=== PATIENT | female | born 1960 | race Caucasian/White ===

== ENCOUNTER 2023-07-23 14:22 | Emergency (ER) | payer BC ==
[~2023-07-23] VITALS: Ht 167.6 cm; Wt 69.4 kg
[2023-07-23] MEDS ORDERED: IPRATROPIUM BROMIDE 0.5 MG/2.5 ML NEBU NEB ONE (14:30)
[2023-07-23] MEDS ORDERED: HYDROXYZINE HCL 25 MG/ML VIAL IM ONE (14:30)
[2023-07-23] MEDS ORDERED: ALBUTEROL SULFATE 2.5 MG/3 ML NEBU NEB ONE (14:30)
[2023-07-23] MEDS ORDERED: methylPREDNISolone SOD SUCC 125 MG/2 ML VIAL IV ONE (14:30)
[2023-07-23] MEDS ORDERED: FAMOTIDINE. 20 MG/2 ML VIAL IV ONE ×2 (14:30→15:17)
[2023-07-23] MEDS ORDERED: GABA600T12 PO (14:36)
[2023-07-23] MEDS ORDERED: LISI40TA13 PO (14:36)
[2023-07-23] MEDS ORDERED: ALEN70TA3 PO (14:36)
[2023-07-23] MEDS ORDERED: CHOL400T28 PO (14:36)
[2023-07-23] MEDS ORDERED: HYDR25TA4 PO (14:36)
[2023-07-23] MEDS ORDERED: PANT40TA2 PO (14:36)
[2023-07-23] MEDS ORDERED: IPRATROPIUM BROMIDE 0.5 MG/2.5 ML NEBU ONE (14:40)
[2023-07-23] MEDS ORDERED: ALBUTEROL SULFATE 2.5 MG/3 ML NEBU ONE (14:40)
[2023-07-23] MEDS ORDERED: methylPREDNISolone SOD SUCC 125 MG/2 ML VIAL ONE (15:17)
[2023-07-23 15:30] LABS: ALANINE AMINOTRANSFERASE 22 U/L (14-59); ALBUMIN 3.5 g/dL (3.4-5.0); ALKALINE PHOSPHATASE 78 U/L (50-136); ASPARTATE AMINOTRANSFERASE 16 U/L (15-37); BILIRUBIN,DIRECT 0.1 mg/dL (0.0-0.2); BILIRUBIN,TOTAL 0.3 mg/dL (0.2-1.0); CALCIUM 9.4 mg/dL (8.5-10.1); CARBON DIOXIDE 22 mmol/L (21-32); CREATININE 0.9 mg/dL (0.6-1.3); GLUCOSE 175 mg/dL (74-106); NT-PRO BNP 158 pg/mL (0-125); TOTAL PROTEIN, SERUM 6.5 g/dL (6.4-8.2); UREA NITROGEN, BLOOD 18 mg/dL (7-18)
[2023-07-23 15:34] VITALS: O2SAT 95
[2023-07-23 15:36] LABS: CHLORIDE 101 mmol/L (98-107); SODIUM SERUM 139 mmol/L (136-145)
[2023-07-23 15:41] LABS: BASOPHILS % (AUTO) 0.3 % (0.0-2.0); EOSINOPHILS # (AUTO) 0.1 K/uL (0.0-0.7); EOSINOPHILS % (AUTO) 1.5 % (0.0-7.0); HEMATOCRIT 37.2 % (31.2-41.9); HEMOGLOBIN 12.8 g/dL (10.9-14.3); LYMPHOCYTES # (AUTO) 3.1 K/uL (0.8-4.8); LYMPHOCYTES % (AUTO) 36.4 % (20.5-51.5); MEAN CORPUSCULAR HEMOGLOBIN 33.3 uug (24.7-32.8); MEAN CORPUSCULAR HGB CONC 35 g/dL (32.3-35.6); MEAN CORPUSCULAR VOLUME 96.5 fL (75.5-95.3); MONOCYTES # (AUTO) 0.4 K/uL (0.1-1.30); MONOCYTES % (AUTO) 4.4 % (0.0-11.0); NEUTROPHILS # (AUTO) 4.9 K/uL (1.8-8.9); NEUTROPHILS % (AUTO) 57.4 % (38.5-71.5); PLATELET COUNT (AUTO) 291 K/uL (179-408); RED BLOOD CELL COUNT(AUTO) 3.85 MIL/uL (3.63-4.92); RED CELL DISTRIBUTION WIDTH 12.9 % (12.3-17.7); WHITE BLOOD COUNT (AUTO) 8.5 K/uL (3.8-11.8)
[2023-07-23 15:45] LABS: POTASSIUM 2.7 mmol/L (3.5-5.1)
[2023-07-23 15:46] LABS: DIFFERENTIAL COMMENT 1
[2023-07-23] MEDS ORDERED: PRED50TA PO (18:03)
[2023-07-23 18:33] VITALS: BP 124/80; O2SAT 97
== END 2023-07-23 18:35 | disposition home or self-care (01) ==
LOC: ER 14:22
DX: T78.04XA Anaphylactic reaction due to fruits and vegetables, initial encounter (principal); J44.9 Chronic obstructive pulmonary disease, unspecified; I10 Essential (primary) hypertension; Z91.018 Allergy to other foods; Z91.013 Allergy to seafood; Z79.899 Other long term (current) drug therapy
CPT/HCPCS: 99285; 96374; 70450; 71045; 96375; 80076; 80048; 83880; 85025; 85379; 84484; 36415; 93005; J3490; J2930; A4606; A4663; J3590